=== PATIENT | female | born 1955 | race African-American/Black ===

== ENCOUNTER 2017-06-14 03:38 | Emergency (ER) | payer MEDICAID ==
[~2017-06-14] VITALS: Ht 149.9 cm; Wt 60.3 kg
[2017-06-14] MEDS ORDERED: [UNRECOGNIZED DRUG - OTHER] (03:49)
[2017-06-14] MEDS ORDERED: RISPERIDONE 1 MG TABLET (03:49)
[2017-06-14] MEDS ORDERED: LORAZEPAM 1 MG TABLET (03:49)
[2017-06-14] MEDS ORDERED: BUPROPION HCL XL 150 MG TABLET (03:49)
[2017-06-14] MEDS ORDERED: CYCLOBENZAPRINE 10 MG TABLET (03:49)
[2017-06-14] MEDS ORDERED: ONDANSETRON HCL 4 MG TABLET (03:49)
[2017-06-14] MEDS ORDERED: ACETAMINOPHEN-COD #3 TABLET (03:49)
[2017-06-14] MEDS ORDERED: FLECTOR 1.3% (03:49)
[2017-06-14] MEDS ORDERED: GABAPENTIN 100 MG CAPSULE (03:49)
[2017-06-14] MEDS ORDERED: TRAMADOL HCL 50 MG TABLET (03:49)
[2017-06-14] MEDS ORDERED: VENLAFAXINE HCL ER 37.5 MG CAP (03:49)
--- NOTE | 2017-06-14 04:20 | NUR ---
Dr Mayes at bedside for assessment and eval
[2017-06-14 05:05] LABS: BASOPHILS % (AUTO) 1.1 % (0.0-2.0); EOSINOPHILS # (AUTO) 0.1 K/uL (0.0-0.7); EOSINOPHILS % (AUTO) 1.6 % (0.0-7.0); HEMATOCRIT 33.1 % (37-47); LYMPHOCYTES # (AUTO) 1.9 K/UL (0.8-4.8); LYMPHOCYTES % (AUTO) 50.3 % (20.5-51.5); MEAN CORPUSCULAR HEMOGLOBIN 31.3 UUG (27.0-31.0); MEAN CORPUSCULAR HGB CONC 33 g/dL (32.0-37.0); MEAN CORPUSCULAR VOLUME 94.4 FL (81.0-99.0); MONOCYTES # (AUTO) 0.3 K/UL (0.1-1.30); NEUTROPHILS # (AUTO) 1.4 K/UL (1.8-8.9); PLATELET COUNT (AUTO) 264 K/UL (150-450); RED BLOOD CELL COUNT(AUTO) 3.51 MIL/UL (4.2-5.4); WHITE BLOOD COUNT (AUTO) 3.7 K/UL (4.0-11.2)
[2017-06-14 05:07] LABS: CREATININE 0.8 mg/dL (0.6-1.3); POTASSIUM 3.8 mmol/L (3.5-5.1)
[2017-06-14 05:12] LABS: BILIRUBIN,DIRECT 0.1 mg/dL (0.0-0.2); BILIRUBIN,TOTAL 0.3 mg/dL (0.2-1.0)
--- NOTE | 2017-06-14 05:30 | NUR ---
Patient resting in bed, no complaints of dizziness or discomfort at this time. No signs of distress. Continue to monitor.
--- NOTE | 2017-06-14 05:59 | NUR ---
Patient discharged to home in stable conditon. Written and verbal after care instructions given. Patient verbalizes understanding of instructions.
[2017-06-14 06:01] VITALS: BP 118/82
== END 2017-06-14 06:02 | disposition home or self-care (01) ==
LOC: ER 03:44
DX: H83.09 Labyrinthitis, unspecified ear (principal); G89.29 Other chronic pain
CPT/HCPCS: 36415; 70030-TC; 83605; 85025; 87040; 87400; A4663